=== PATIENT | female | born 1995 | race African-American/Black ===

== ENCOUNTER 2022-02-12 09:30 | Emergency (ER) | payer OTHER ==
[~2022-02-12] VITALS: Ht 160 cm; Wt 43.1 kg
[2022-02-12 09:59] LABS: BASOPHILS % (AUTO) 0.3 % (0.0-2.0); EOSINOPHILS % (AUTO) 2.5 % (0.0-6.0); HEMATOCRIT 40 % (33-45); HEMOGLOBIN 13.6 g/dL (11.5-14.8); LYMPHOCYTES # (AUTO) 1.6 K/uL (0.8-4.8); LYMPHOCYTES % (AUTO) 21.9 % (20.0-44.0); MEAN CORPUSCULAR HGB CONC 34 g/dl (31.0-36.0); MEAN CORPUSCULAR VOLUME 85 fL (82-100); MONOCYTES # (AUTO) 0.4 K/uL (0.1-1.30); MONOCYTES % (AUTO) 5.8 % (2.0-12.0); NEUTROPHILS # (AUTO) 4.9 K/uL (1.8-8.9); NEUTROPHILS % (AUTO) 69.5 % (43.0-81.0); PLATELET COUNT (AUTO) 272 K/uL (150-450); RED BLOOD CELL COUNT(AUTO) 4.71 MIL/uL (4.0-5.2); WHITE BLOOD COUNT (AUTO) 7.1 K/uL (4.3-11.0)
[2022-02-12 10:15] LABS: CREATININE 0.9 mg/dL (0.6-1.3)
[2022-02-12 10:17] LABS: ALBUMIN 4.4 g/dL (3.4-5.0); BILIRUBIN,TOTAL 0.5 mg/dL (0.2-1.0); TOTAL PROTEIN, SERUM 8.1 g/dL (6.4-8.2)
[2022-02-12] MEDS ORDERED: KETOROLAC TROMETHAMINE INJ 30 MG/ML VIAL IV ONE (10:30)
[2022-02-12] MEDS ORDERED: IV NS 0.9% 1,000 ML IV ONE (10:30)
[2022-02-12] MEDS ORDERED: KETOROLAC TROMETHAMINE 15 MG/ML VIAL ONE (10:45)
[2022-02-12] MEDS ORDERED: DEXAMETHASONE SOD PHOSPHATE 10 MG/ML VIAL IV ONE (11:30)
[2022-02-12] MEDS ORDERED: DEXAMETHASONE SOD PHOSPHATE 10 MG/ML VIAL ONE (11:38)
[2022-02-12] MEDS ORDERED: IBUP-1955 PO (11:39)
[2022-02-12] MEDS ORDERED: AMOX-430 PO (11:39)
[2022-02-12] MEDS ORDERED: ONDA4TAB5 PO (11:39)
[2022-02-12 12:00] VITALS: BP 126/75
== END 2022-02-12 12:00 | disposition home or self-care (01) ==
LOC: ER 09:33
DX: J02.9 Acute pharyngitis, unspecified (principal); E87.6 Hypokalemia; R07.9 Chest pain, unspecified; Z20.822 Contact with and (suspected) exposure to COVID-19; R59.0 Localized enlarged lymph nodes; E07.9 Disorder of thyroid, unspecified; R13.10 Dysphagia, unspecified
CPT/HCPCS: 36415; 71045; 80053; 85025; 87070; 87880; 93005; 96361; 96374; 96375; 99285; C9803; J1100; J1885; J7030; U0003; 86403-TC